=== PATIENT | male | born 1940 | race Caucasian/White ===

== ENCOUNTER 2020-07-08 14:18 | Emergency (ER) | payer MEDICARE ==
[2020-07-08] MEDS ORDERED: Lidocaine 1% (PF) 30 ML VIAL ONE (15:48)
== END 2020-07-08 16:28 | disposition home or self-care (01) ==
LOC: CSHERS 14:18
DX: S61.412A Laceration without foreign body of left hand, initial encounter (principal); W21.04XA Struck by golf ball, initial encounter; Y93.53 Activity, golf
CPT/HCPCS: 12002; J2001